=== PATIENT | female | born 1965 | race Caucasian/White ===

== ENCOUNTER → 2016-10-21 | Outpatient (CLI) | payer BC ==
[~2016-10-21] MED LIST: CLIN1KIT TP; MINO100C2 PO
--- NOTE | 2016-10-22 10:50 | Diagnostic Imaging Report ---
INDICATION: Screening mammogram COMPARISON: 09/19/2015, 09/17/2014, 04/24/2014 FAMILY HISTORY: Positive in grandmother Bilateral digital mammography is performed with computer assisted detection (CAD) software utilization. There are no reported clinical signs and/or symptoms of breast cancer. The breast tissue pattern is composed mostly of radiographically dense breast tissue. This does limit sensitivity. A mass could fairly easily be hidden. Right breast: No architectural distortion or dominant mass is identified. Right breast calcifications showed no signIficant change from priors. Left breast: There is an area of microcalcification in the upper-outer left breast that should be assessed with magnification views. There is a new mass in the medial aspect of the breast which is probably a cyst. The large cyst in the subareolar region has decreased in size. Another mass has increased in size in the lateral upper left breast which may also be a cyst. IMPRESSION: 1. Additional mammographic views and ultrasound of the left breast recommended for microcalcifications and probable cysts. ACR BI-RADS Category 0 : Needs additional imaging Result letter will be mailed to the patient. Note: At least 10% of breast cancer is not imaged by mammography. Dictated by: Dictated on workstation # [id number]
== END ==
LOC: RAD 12:51
PROVIDERS: ATTEND Family Medicine
DX: Z12.31 Encounter for screening mammogram for malignant neoplasm of breast (principal); R92.0 Mammographic microcalcification found on diagnostic imaging of breast

== ENCOUNTER → 2016-10-29 | Outpatient (CLI) | payer BC | LOC: RAD 10:57 | PROVIDERS: ATTEND Family Medicine | DX: Z53.8 Procedure and treatment not carried out for other reasons (principal) ==

== ENCOUNTER → 2016-11-05 | Outpatient (CLI) | payer BC ==
[~2016-11-05] MED LIST changes: +IRON1TAB PO
--- NOTE | 2016-11-05 18:36 | Diagnostic Imaging Report ---
INDICATION: Followup breast densities. COMPARISON: 04/29/2014 through 10/21/2016. The current study was also evaluated with a Computer Aided Detection (CAD) system. FINDINGS: Multiple mammographic views of the left breast were obtained. The breast tissue is heterogeneously dense, which may lower the sensitivity of mammography. The microcalcifications in the upper-outer quadrant of the left breast are stable when compared to 04/29/2014. There has been no adverse interval change in regards to microcalcifications. These are considered benign. Multiple rounded focal asymmetries are also seen throughout the left breast. Reference density in the medial half is identified and persists with spot compression. This is felt to be present within the 9 o'clock position when compared to the MLO and true lateral views. Followup ultrasound demonstrated a dominant benign cyst. Multiple rounded densities are also noted within the upper-outer quadrant of the left breast. Followup sonogram also demonstrated multiple benign cysts. IMPRESSION: 1. Benign microcalcifications in the left breast. 2. Multiple benign cysts. 3. No mammographic or sonographic evidence of malignancy. ACR BI-RADS Category 2: Benign findings. Result letter will be mailed to the patient. Note: At least 10% of breast cancer is not imaged by mammography. Recommendations: Patient may return to yearly screening mammograms. Dictated by: Dictated on workstation # [id number]
--- NOTE | 2016-11-05 18:39 | Diagnostic Imaging Report ---
PROCEDURE: US Breast limited, left. TECHNIQUE: Multiple realtime grayscale images were obtained over the left breast in various projections. INDICATION: Followup left breast densities. COMPARISON: Diagnostic mammogram from earlier same day FINDINGS: Focused sonographic evaluation of the 9:00 position of the left breast was performed. There is a dominant simple appearing cyst that measures 1.4 x 1.3 x 1 cm. This is felt to correspond to density described on previously performed mammograms. A few other benign cysts are also noted within the 8 to 10:00 position. No soft tissue lesions are identified. Focused sonographic evaluation of the upper-outer quadrant of the left breast was also performed. There is a dominant simple appearing cyst in the 12:00 position that measures approximately 1.8 x 1.9 x 1.1 cm. A few other smaller simple appearing cysts are also noted in the upper outer quadrant. Dense fibroglandular ridge is also present. No soft tissue lesions or other sonographic evidence of malignancy is identified. IMPRESSION: 1. Multiple benign cysts of the left breast as described above. Patient may return to yearly screening mammograms. BI-RADS category 2: Benign findings Recommendations: As above. Dictated by: Dictated on workstation # [id number]
== END ==
LOC: RAD 08:59
PROVIDERS: ATTEND Family Medicine
DX: N63 Unspecified lump in breast (principal); R92.0 Mammographic microcalcification found on diagnostic imaging of breast; N60.02 Solitary cyst of left breast
CPT/HCPCS: 76642; G0206

== ENCOUNTER 2016-11-08 08:47 | Day surgery (SDC) | payer BC ==
[~2016-11-08] VITALS: Ht 177.8 cm; Wt 76.0 kg
[~2016-11-08 08:47] MED LIST changes: +LACTATED RINGERS 1,000 ML IV SCH; +LIDOCAINE 4% TOPICAL 4.5 ML SYR ONE; +SIMETHICONE 40 MG/0.6 ML (MYLICON DROPS) ORAL SYRINGE ONE; +SODIUM CHLORIDE FLUSH 3 ML SYR IV PRN
--- OUTSIDE RECORDS SUMMARY | 2016-11-08 08:51 | XMS REPORT | Continuity of Care Document ---
Author Author [facility] Address Unknown Phone Unavailable Allergies Active Description Code Type Severity Reaction Onset Reported/Identified Relationship to Patient Clinical Status Yes No Known Drug Allergies [id number] Drug Allergy Unknown N/ A 05/22/2014 Medications Problems Date Dx Coded Attending Type Code Diagnosis Diagnosed By 05/17/2014 RAQUEL LAWSON, YAO Hale Ot 610.0 05/17/2014 RAQUEL LAWSON, YAO Hale Ot 793.82 05/17/2014 RAQUEL LAWSON, YAO Hale Ot 793.89 05/23/2014 ARMANDO LAWSON, JONNATHAN Caballero Ot 562.10 05/23/2014 ARMANDO LAWSON, JONNATHAN Caballero Ot V76.51 06/28/2014 RAQUEL LAWSON, YAO Hale Ot V76.12 06/28/2014 RAQUEL LAWSON, YAO Hale Ot 610.0 06/28/2014 RAQUEL LAWSON, YAO Hale Ot 793.82 06/28/2014 RAQUEL LAWSON, YAO Hael Ot 793.89 07/18/2014 RAQUEL LAWSON, YAO Hale Ot V76.12 07/18/2014 RAQUEL LAWSON, YAO Hale Ot 610.0 07/18/2014 RAQUEL LAWSON, YAO Hale Ot 793.82 07/18/2014 RAQUEL LAWSON, YAO Hale Ot 793.89 10/03/2014 Ot 610.0 10/03/2014 Ot 611.72 11/14/2014 RAQUEL LAWSON, YAO Hale Ot V76.12 11/14/2014 RAQUEL LAWSON, YAO Hale Ot 610.0 11/14/2014 RAQUEL LAWSON, YAO Hale Ot 793.82 11/14/2014 RAQUEL LAWSON, YAO Hale Ot 793.89 11/14/2014 Ot 610.0 11/14/2014 Ot 611.72 11/15/2014 RAQUEL LAWSON, YAO Hale Ot V76.12 11/15/2014 RAQUEL LAWSON, YAO Hale Ot 610.0 11/15/2014 RAQUEL LAWSON, YAO Hale Ot 793.82 11/15/2014 RAQUEL LAWSON, YAO Hale Ot 793.89 11/15/2014 Ot 610.0 11/15/2014 Ot 611.72 05/15/2015 Ot 610.0 05/15/2015 Ot 611.72 09/19/2015 RAQUEL LAWSON, YAO Hale Ot V76.12 09/19/2015 RAQUEL LAWSON, YAO Hale Ot 610.0 09/19/2015 RAQUEL LAWSON, YAO Hale Ot 793.82 09/19/2015 RAQUEL LAWSON, YAO Hale Ot 793.89 09/19/2015 Ot 610.0 09/19/2015 Ot 611.72 09/24/2015 RAQUEL LAWSON, YAO Hale Ot R92.2 09/24/2015 RAQUEL LAWSON, YAO Hale Ot Z12.31 09/29/2015 RAQUEL LAWSON, YAO Hale Ot R92.2 09/29/2015 RAQUEL LAWSON, YAO Hale Ot Z12.31 09/30/2015 RAQUEL LAWSON, YAO Hale Ot V76.12 09/30/2015 RAQUEL LAWSON, YAO Hale Ot 610.0 09/30/2015 RAQUEL LAWSON, YAO Hale Ot 793.82 09/30/2015 RAQUEL LAWSON, YAO Hale Ot 793.89 09/30/2015 Ot 610.0 09/30/2015 Ot 611.72 09/30/2015 RAQUEL LAWSON, YAO Hale Ot R92.2 09/30/2015 RAQUEL LAWSON, YAO Hale Ot Z12.31 10/07/2015 RAQUEL LAWSON, YAO Hale Ot R92.2 10/07/2015 RAQUEL LAWSON, YAO Hale Ot Z12.31 10/15/2015 RAQUEL LAWSON, YAO Hale Ot R92.2 10/31/2016 YAO GARCÍA MD Ot R92.0 MAMMOGRAPHIC MICROCALCIFICATION FOUND ON 10/31/2016 YAO GARCÍA MD Ot Z12.31 ENCNTR SCREEN MAMMOGRAM FOR MALIGNANT NE 11/03/2016 YAO GARCÍA MD Ot Z53.8 PROCEDURE AND TREATMENT NOT CARRIED OUT 11/03/2016 YAO GARCÍA MD Ot R92.0 MAMMOGRAPHIC MICROCALCIFICATION FOUND ON 11/03/2016 YAO GARCÍA MD Ot Z12.31 ENCNTR SCREEN MAMMOGRAM FOR MALIGNANT NE Procedures Code Description Performed By Performed On 45.23 05/23/2014 Results Encounters ACCT No. Visit Date/Time Discharge Status Pt. Type Provider Facility Loc./Unit Complaint [id number] 05/23/2014 06:54:00 2013 09:37:00 DIS Outpatient ARMANDO LAWSON, [facility] [id number] 04/29/2014 10:24:00 2013 23:59:59 CLS Outpatient RAQUEL LAWSON, [facility] RAD [id number] 04/24/2014 08:41:00 2013 23:59:59 CLS Outpatient RAQUEL LAWSON, [facility] RAD [id number] 11/08/2016 11:15:00 PEN Preadmit HERBERTH LAWSON, [facility] EGD [id number] 11/05/2016 08:59:00 ACT Outpatient RAQUEL LAWSON, [facility] RAD [id number] 10/29/2016 10:57:00 ACT Outpatient RAQUEL LAWSON, [facility] RAD MICROCALCIFICATIONS AND CYST LEFT BREAST [id number] 10/21/2016 12:51:00 ACT Outpatient RAQUEL LAWSON, [facility] RAD MAMMO SCREENING [id number] 09/30/2015 10:49:00 ACT Outpatient RAQUEL LAWSON, [facility] RAD [id number] 09/19/2015 07:26:00 ACT Outpatient RAQUEL LAWSON, [facility] RAD [id number] 09/17/2014 08:52:00 Document Registration
[2016-11-08 08:59] VITALS: BP 142/84
[2016-11-08] MEDS ORDERED: ALFENTANIL 500 MCG/ML (ALFENTA) 5 ML AMP IV ONE (09:41)
[2016-11-08] MEDS ORDERED: MIDAZOLAM 2 MG/2 ML (VERSED) VIAL ONE (09:42)
[2016-11-08] MEDS ORDERED: PROPOFOL 20 ML IV ONE (09:42)
[2016-11-08] MEDS ORDERED: LIDOCAINE 4% TOPICAL 4.5 ML SYR ONE (09:54)
[2016-11-08 10:38] VITALS: BP 125/89
[2016-11-08 10:51] VITALS: BP 111/57
--- NOTE | 2016-11-08 10:59 | OPERATIVE REPORT ---
DATE OF OPERATION: 11/08/2016 PRE-OPERATIVE DIAGNOSIS: Heartburn and anemia POST-OPERATIVE DIAGNOSIS: 1. Mild antral gastritis. 2. Gastric fundic polyps OPERATIVE PROCEDURE: Esophagogastroduodenoscopy with biopsies SURGEON: Torrey Patton MD ANESTHESIA: IV conscious sedation and topical oropharyngeal anesthetic, Monitored Anesthesia Services POSITION: Semi-recumbent, left rotation ESTIMATED BLOOD LOSS: Minimal FINDINGS: Same. Normal appearing esophagus, stomach and duodenum otherwise. INDICATIONS: This patient had a history of progressive pyrosis and mild anemia. She had a colonoscopy that was normal except for diverticulosis for screening purposes, a year and a half ago. This was therefore not repeated. It was proposed to proceed with upper endoscopy, given the patient is symptomatic and has mild anemia. OPERATIVE NOTE: Following satisfactory induction of analgesia a bite block was inserted per os. The gastroscope was inserted through the bite block into the oropharynx. The pharynx, vocal cords and, larynx appeared normal. The patient was allowed to swallow the scope, which was advanced through the esophagus, stomach and duodenum to the second potion, including retroflexed view of the gastric fundus. Autocad photographs were obtained. The above findings were noted. The esophagus appeared normal with a normal Z Z-line at 38 cm. The patient had a few scattered, typical fundic polyps in the stomach. The duodenal bulb and duodenum appeared normal. Using cold biopsy forceps separate biopsies were obtained of the duodenum, gastric antrum, fundic polyps and distal esophagus. Good hemostasis was noted at the biopsy sites. The above areas were again carefully inspected. Excess CO2 was evacuated and the scope removed. The patient tolerated the procedure well and transferred to recovery in stable condition. RECOMMENDATIONS: Recommendations will depend on biopsy results. The patient should continue antireflux measures as previously discussed.
== END 2016-11-08 11:00 | disposition home or self-care (01) ==
LOC: ASC 08:47
PROVIDERS: ATTEND Surgery
DX: R12 Heartburn (principal); D64.9 Anemia, unspecified; K31.7 Polyp of stomach and duodenum; K21.0 Gastro-esophageal reflux disease with esophagitis
CPT/HCPCS: 43239; 87077; J2250; J7120